=== PATIENT | female | born 1955 | race Caucasian/White ===

== ENCOUNTER → 2016-09-19 | Outpatient (CLI) | payer OTHER ==
--- NOTE | 2016-09-20 13:25 | MAMMOGRAPHY REPORT ---
BILATERAL DIGITAL SCREENING MAMMOGRAM TOMOSYNTHESIS WITH CAD: 09/19/2016 CLINICAL HISTORY: Routine screening. Patient has no complaints. TECHNIQUE: Breast tomosynthesis in addition to standard 2D mammography was performed. Current study was also evaluated with a Computer Aided Detection (CAD) system. COMPARISON: Comparison is made to exams dated: 08/19/2015 mammogram, 08/15/2013 mammogram, 08/18/20 14 mammogram, 08/19/2011 ultrasound, 08/19/2011 mammogram, and 08/06/2009 mammogram - [facility]. BREAST COMPOSITION: The tissue of both breasts is heterogeneously dense, which may obscure small ma sses. FINDINGS: The parenchymal pattern is unchanged. No developing mass, architectural distortion or clu ster of suspicious microcalcifications is seen in either breast. IMPRESSION: ACR BI-RADS CATEGORY 2: BENIGN There is no mammographic evidence of malignancy. A 1 year screening mammogram is recommended. The p atient will receive written notification of the results. Approximately 10% of breast cancers are not detected with mammography. A negative mammographic repor t should not delay biopsy if a clinically suggestive mass is present. Roslyn Fierro M.D. ay/:09/19/2016 16:54:37 Sealant Mixer: Molly BARAKAT(R)(M), [facility] letter sent: Normal 1/2 BI-RADS Code: ACR BI-RADS Category 2: Benign
== END | disposition home or self-care (01) ==
LOC: C.MAMM 12:57
PROVIDERS: ATTEND Nurse Practitioner
DX: Z12.31 Encounter for screening mammogram for malignant neoplasm of breast (principal); S92.352A Displaced fracture of fifth metatarsal bone, left foot, initial encounter for closed fracture; X58.XXXA Exposure to other specified factors, initial encounter

== ENCOUNTER → 2016-10-04 | Outpatient (CLI) | payer OTHER | END | disposition home or self-care (01) | LOC: C.PAPS 09:36 | PROVIDERS: ATTEND Obstetrics & Gynecology | DX: Z12.4 Encounter for screening for malignant neoplasm of cervix (principal) ==

== ENCOUNTER → 2017-09-20 | Outpatient (CLI) | payer OTHER ==
--- NOTE | 2017-09-20 15:40 | MAMMOGRAPHY REPORT ---
BILATERAL DIGITAL SCREENING MAMMOGRAM TOMOSYNTHESIS WITH CAD: 09/20/2017 CLINICAL HISTORY: Routine screening. Patient has no complaints. TECHNIQUE: Breast tomosynthesis in addition to standard 2D mammography was performed. Current study was also evaluated with a Computer Aided Detection (CAD) system. COMPARISON: Comparison is made to exams dated: 09/19/2016 mammogram, 08/19/2015 mammogram, 08/18/2014 mammogram, 08/15/2013 mammogram, 08/14/2012 mammogram, and 08/12/2011 mammogram - [facility]. BREAST COMPOSITION: The tissue of both breasts is heterogeneously dense, which may obscure small mas ses. FINDINGS: No suspicious masses, calcifications, or areas of architectural distortion are noted in ei ther breast. There has been no significant interval change compared to prior exams. IMPRESSION: ACR BI-RADS CATEGORY 1: NEGATIVE There is no mammographic evidence of malignancy. A 1 year screening mammogram is recommended. The pa tient will receive written notification of the results. Approximately 10% of breast cancers are not detected with mammography. A negative mammographic report should not delay biopsy if a clinically suggestive mass is present. Katelin Castro M.D. ah/:09/20/2017 15:22:07 Printing Equipment Mechanic Apprentice: Molly BARAKAT(Saritha)(M), [facility] letter sent: Normal 1/2 BI-RADS Code: ACR BI-RADS Category 1: Negative
== END | disposition home or self-care (01) ==
LOC: C.MAMM 12:26
PROVIDERS: ATTEND Internal Medicine
DX: Z12.31 Encounter for screening mammogram for malignant neoplasm of breast (principal)

== ENCOUNTER → 2017-10-14 | Outpatient (CLI) | payer OTHER ==
--- NOTE | 2017-10-14 10:53 | DIAGNOSTIC IMAGING REPORT ---
CHEST 2 VIEWS ROUTINE HISTORY: R50.9 Fever R05 Cough productive of purulent sputum [id number] COMPARISON: None. FINDINGS: No pleural effusions. No pneumothorax. The heart is normal in size. Focal airspace opacity within the superior segment of the right lower lobe. IMPRESSION: Focal right lower lobe airspace opacity. This likely represents a pneumonia. Recommend one month chest x-ray follow-up to ensure complete resolution. Electronically signed by: Theo Tolbert M.D. 10/14/2017 10:52 AM Dictated Date/Time: 10/14/2017 10:50 AM
== END | disposition home or self-care (01) ==
LOC: C.RAD1850 10:38
PROVIDERS: ATTEND Internal Medicine
DX: R50.9 Fever, unspecified (principal); R05 Cough; R91.8 Other nonspecific abnormal finding of lung field

== ENCOUNTER → 2017-11-04 | Outpatient (CLI) | payer OTHER ==
--- NOTE | 2017-11-04 10:37 | DIAGNOSTIC IMAGING REPORT ---
CHEST 2 VIEWS ROUTINE HISTORY: 62 years-old Female RIGHT LOWER LEG PAIN follow-up study in a patient with right lower lobe pneumonia COMPARISON: Chest radiographs 10/14/2017 TECHNIQUE: PA and lateral views of the chest FINDINGS: Cardiomediastinal and hilar silhouettes are within normal limits. There is no pneumothorax or pleural effusion. No overt pulmonary edema. Left lung is clear. There is improved aeration of the superior segment right lower lobe now with only minimal airspace disease now seen within this distribution, predominantly appearing linear in morphology. The bones of the chest appear grossly intact. IMPRESSION: Improved aeration of the superior segment right lower lobe now with only minimal airspace opacities present suggesting resolving pneumonia. The above report was generated using voice recognition software. It may contain grammatical, syntax or spelling errors. Electronically signed by: Dominic Gasca M.D. 11/04/2017 10:35 AM Dictated Date/Time: 11/04/2017 10:33 AM
[2017-11-04 12:55] LABS: BASO % 0.4 %; BASO ABS # 0.03 K/uL (0-0.2); EOS % 2.1 %; EOS ABS # 0.18 K/uL (0-0.5); HEMATOCRIT 37.7 % (37-47); HEMOGLOBIN 12.7 g/dL (12.0-16.0); IG# 0.01 K/uL (0.00-0.02); LYMPH % 41.3 %; MEAN CELL VOLUME 92.6 fL (80-100); MEAN CORPUSCULAR HEMOGLOBIN 31.2 pg (25-34); MEAN CORPUSCULAR HGB CONC 33.7 g/dl (32-36); MEAN PLATELET VOLUME 9.7 fL (7.4-10.4); MONO % 11.7 %; MONO ABS # 0.99 K/uL (0.11-0.59); NEUT % 44.4 %; NEUT ABS # 3.76 K/uL (1.4-6.5); PLATELET COUNT 275 K/uL (130-400); RED CELL DISTRIBUTION WIDTH CV 13.9 % (11.5-14.5); RED CELL DISTRIBUTION WIDTH SD 47.1 fL (36.4-46.3); WHITE BLOOD COUNT 8.47 K/uL (4.8-10.8)
== END | disposition home or self-care (01) ==
LOC: C.RAD1850 10:17
PROVIDERS: ATTEND Family Medicine
DX: J18.1 Lobar pneumonia, unspecified organism (principal)

== ENCOUNTER → 2018-04-17 | Outpatient (CLI) | payer OTHER ==
[2018-04-17 18:15] LABS: BLOOD UREA NITROGEN 22 mg/dl (7-18); CREATININE 0.99 mg/dl (0.60-1.20)
--- NOTE | 2018-04-25 08:53 | CODING QUERY NO DIAGNOSIS ---
TREATMENT RENDERED WITHOUT A DIAGNOSIS 56 To promote full compliance with coding requirements relating to patient care, physician participation is requested in all cases of hcc coders uncertainty. Please assist us with providing a diagnosis/symptom for the test(s) below: A diagnosis/symptom was not documented on your Order. A valid diagnosis/symptom is required to bill all insurances. Please remember that we are unable to code a diagnosis of rule out, probable, possible, questionable, or suspected. DOS 04/17/18 Tests that require a diagnosis: * BLOOD UREA NITROGEN DIAGNOSIS: * CREATININE DIAGNOSIS: Provider Signature: Date: Thank you Diana Payne [employer] Once completed, please kindly fax back to [phone] For questions please call [phone]
== END | disposition home or self-care (01) ==
LOC: C.LAB 17:27
PROVIDERS: ATTEND Podiatrist Foot & Ankle Surgery
DX: D04.72 Carcinoma in situ of skin of left lower limb, including hip (principal); D23.72 Other benign neoplasm of skin of left lower limb, including hip

== ENCOUNTER → 2018-04-20 | Outpatient (CLI) | payer OTHER ==
--- NOTE | 2018-04-20 18:56 | DIAGNOSTIC IMAGING REPORT ---
L LOWER EXT JOINT COMBO HISTORY: 62 years-old Female M77.42, D23.72 patient complains of subacute palpable abnormality of the plantar foot for a proximally 6 months. Patient also reports prior surgery in the year 2013 within this distribution. COMPARISON: Left foot radiograph 05/09/2016 TECHNIQUE: Multiplanar multisequence MRI of the left forefoot was obtained both with and without the use of 7 mL Gadavist FINDINGS: Oil marker is noted about the mid plantar aspect of the medial forefoot at the level of the first metatarsal base. There is minimal thickening of the adjacent plantar fascia just deep to the skin marker, image 8 series 14 without definite enhancement or focal mass identified. No evidence of acute plantar fasciitis or plantar fascial tear. The muscles about the plantar foot appear unremarkable. The imaged flexor and extensor tendons appear intact. Lisfranc ligament is identified and appears intact. No significant subcutaneous edema. No evidence of intermetatarsal bursitis or perineural fibrosis (Flanagan neuroma) the plantar plates appear intact. Mild cortical thickening related to healed fracture deformities of the distal fourth and fifth metatarsals. Mild to moderate osteoarthritis about the first MTP joint with mild multidigit interphalangeal osteoarthritis. No acute fracture, suspicious bone lesion or focal bone marrow edema. IMPRESSION: 1. Minimal thickening of the plantar fascia just deep to the skin marker without definite enhancement or focal mass identified. Postoperative changes or subtle developing fibromatosis are differential considerations. 2. Healed fracture deformities of the distal fourth and fifth metatarsals. 3. 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 The above report was generated using voice recognition software. It may contain grammatical, syntax or spelling errors. Electronically signed by: Dominic Gasca M.D. 04/20/2018 6:55 PM Dictated Date/Time: 04/20/2018 6:45 PM
== END | disposition home or self-care (01) ==
LOC: C.MRI 16:58
PROVIDERS: ATTEND Podiatrist Foot & Ankle Surgery
DX: M77.42 Metatarsalgia, left foot (principal); D23.72 Other benign neoplasm of skin of left lower limb, including hip; M79.672 Pain in left foot; M19.072 Primary osteoarthritis, left ankle and foot